=== PATIENT | male | born 1955 | race Caucasian/White ===

== ENCOUNTER → 2017-01-31 | Outpatient (CLI) | payer OTHER ==
[~2017-01-31] MED LIST: ASA CHILDREN'S81 MG PO; ATORVASTATIN CA40 MG PO; BUSPAR DPS10 MG PO; CETIRIZINE HCL5 M1 PO; COZAAR100 MG PO; GLUCOPHAGE DPS850 MG PO; GLUCOTROL DPS10 MG PO; HYDROCHLOROTHIA25 MG PO; NEURONTIN DPS600 MG PO; NITROSTAT0.4 MG SL; PROTONIX40 MG PO; PROVENTIL HFA6.7 GM IH; PROZAC DPS20 MG PO; THERA1 EACH PO; VITAMIN D-32000 UNI1 PO
== END | disposition home or self-care (01) ==
LOC: RAD.S 10:43
DX: R13.12 Dysphagia, oropharyngeal phase (principal)

== ENCOUNTER 2017-02-16 11:04 | Observation (INO) | payer OTHER ==
[~2017-02-16] VITALS: Ht 193 cm; Wt 123.9 kg
--- NOTE | ~2017-02-16 | FD ---
ADMIT: 02/16/2017 RM/LOC: 430 [facility] MR#: [id number] [id number] [facility] [address] EARLENE JUAREZ [address] [place] [address] Final Diagnosis SEX: M AGE: 61 : 1955 ADMISSION DATE: 02/16/2017 DISCHARGE DATE: 02/17/2017 DISCHARGE DIAGNOSES: 1. Chest pain, resolved, suspicious for angina. 2. History of nonobstructive coronary artery disease, status post left heart cath in 2014. 3. Obesity. 4. Hypertension. 5. Hyperlipidemia. 6. Diabetes mellitus type 2. 7. Anxiety/depression. Michele Johnson MD/ vdg JOB #: [id number] CC: Michele Johnson MD, Attending Physician Michele Johnson MD, Family Physician
[2017-02-18] MEDS ORDERED: ATORVASTATIN CA40 MG PO (16:43)
[2017-02-18] MEDS ORDERED: PROVENTIL HFA6.7 GM IH (16:43)
[2017-02-18] MEDS ORDERED: BUSPAR DPS10 MG PO ×2 (16:43)
[2017-02-18] MEDS ORDERED: VITAMIN D-32000 UNI1 PO (16:44)
[2017-02-18] MEDS ORDERED: NEURONTIN DPS600 MG PO (16:44)
[2017-02-18] MEDS ORDERED: CETIRIZINE HCL5 M1 PO (16:44)
[2017-02-18] MEDS ORDERED: PROZAC DPS20 MG PO (16:44)
[2017-02-18] MEDS ORDERED: GLUCOTROL DPS10 MG PO (16:45)
[2017-02-18] MEDS ORDERED: COZAAR100 MG PO (16:46)
[2017-02-18] MEDS ORDERED: HYDROCHLOROTHIA25 MG PO (16:46)
[2017-02-18] MEDS ORDERED: GLUCOPHAGE DPS850 MG PO (16:46)
[2017-02-18] MEDS ORDERED: ASA CHILDREN'S81 MG PO (16:47)
[2017-02-18] MEDS ORDERED: NITROSTAT0.4 MG SL (16:47)
[2017-02-18] MEDS ORDERED: THERA1 EACH PO (16:47)
[2017-02-18] MEDS ORDERED: PROTONIX40 MG PO (16:47)
--- NOTE | 2017-02-21 07:29 | HP ---
ADMIT: 02/16/2017 RM/LOC: 430 [facility] MR#: [id number] [address] [address] EARLENE JUAREZ [address] [place] [address] History and Physical SEX: M AGE: 61 : 1955 DATE OF SERVICE: 02/16/2017 CHIEF COMPLAINT: Chest discomfort. HISTORY OF PRESENT ILLNESS: The patient is a very pleasant 61-year-old gentleman, he has past medical history of obesity, diabetes, hypertension, hyperlipidemia, and nonobstructive coronary disease presents to [facility] emergency room today with complaints of chest discomfort. The patient notes he had been over at the [facility] where he had appointment for acupuncture today and in the screening questionnaires, did complain of some left-sided chest discomfort with radiation down his arm and a little bit of questionable numbness in his hand. Rated this as moderate in severity associated with a little bit of shortness of breath. He was not nauseated or diaphoretic and he was sent to the emergency room for more evaluation there. They placed nitroglycerin paste and the patient notes the pain went away. In discussions with the patient, he has noted episodes intermittently over the last several months of the same left-sided chest discomfort that has been associated with dyspnea on exertion and decreased exercise tolerance. He just feels like certain exercises leave him much more fatigued and short of breath than he used to be. No new edema, no new palpitations have been noted. He is taking all of his medications as directed. No recent medication changes have been noted. No fevers, chills, or cough has been noted. No bowel or bladder complaints have been noted. In the emergency room, his initial cardiac enzymes showed a normal troponin, but a mildly elevated MB fraction. He is admitted for observation/further evaluation. In visiting with the patient, in hospital room he currently denies any chest pain, pressure, or shortness of breath. The patient also has noted some episodes of dizziness with exertion recently. The remaining review of systems are reviewed and are negative. PAST MEDICAL HISTORY: 1. Obesity. 2. Diabetes mellitus type 2. 3. 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 4. Hypertension. 5. Diabetic neuropathy. 6. History of hypogonadism. 7. Tinnitus. 8. Chronic low back pain. 9. Chronic arthritis of the knees and hips. 10.Chronic depression/anxiety. 11.History of kidney stones. 12.History of tobacco abuse. 13.Obesity. 14.Status post appendectomy. 15.Status post hernia repair. 16.Left knee arthroscopy. FAMILY HISTORY: Noncontributory. ADMIT: 02/16/2017 RM/LOC: 430 [facility] MR#: [id number] [address] [address] EARLENE JUAREZ [address] [place] [address] History and Physical SEX: M AGE: 61 : 1955 SOCIAL HISTORY: He is a prior smoker, not a drinker. Currently disabled through the [place]. He is and lives with his . CURRENT HOME MEDICATIONS: Include: 1. Albuterol. 2. BuSpar. 3. Atorvastatin. 4. Zyrtec. 5. Vitamin D. 6. Prozac. 7. Gabapentin. 8. Glipizide. 9. Hydrochlorothiazide. 10.Losartan. 11.Metformin. 12.Naproxen. 13.Pantoprazole. 14.Aspirin. 15.Multivitamin. ALLERGIES: NO KNOWN MEDICAL ALLERGIES. PHYSICAL EXAM: VITAL SIGNS: 96.8, 76, 18, 129/69, 95% on room air. GENERAL: This is a morbidly obese, gentleman, no apparent distress. He is alert and oriented x3, cooperative with examiner. HEENT: Normocephalic and atraumatic. Mucous membranes are moist. NECK: Supple. LUNGS: Clear. No wheezes, rhonchi, or rales. HEART: Regular rate and rhythm. No murmurs, clicks, rubs. ABDOMEN: Obese, soft, nontender, nondistended. Positive bowel sounds throughout. EXTREMITIES: He has no significant edema noted. He has good pulses that are palpable. NEUROLOGIC: Cranial nerves II through XII are intact. No focal deficits are noted. SKIN: Shows no obvious rashes. LABORATORY DATA: Shows hemoglobin 14.7, white count 6.6, and 176,000 platelets. Sodium 140, potassium 3.9, BUN 16, creatinine 0.9, blood sugar was 204, and calcium was 9. CK was 237 with an MB of 4.5, troponin less than 0.05 on 2 separate occasions. His EKG shows normal sinus rhythm. He overall has a normal axis. He has normal intervals. No significant ST or T-wave changes are noted. Chest x-ray, I see no airspace disease. His heart shadow appears normal. Mediastinum looks normal. ASSESSMENT/PLAN: 1. Chest pain/unstable angina. ADMIT: 02/16/2017 RM/LOC: 430 [facility] MR#: [id number] [address] [place] [id number] EARLENE JUAREZ [address] [place] [address] History and Physical SEX: M AGE: 61 : 1955 2. Known coronary disease with his last left heart catheterization [facility] 2014 showing nonobstructive disease. 3. Diabetes mellitus type 2. 4. Hypertension. 5. Hyperlipidemia. 6. Morbid obesity. 7. Anxiety. At this time,the patient is chest pain free. Two sets of cardiac enzymes are fine right now, but I am very suspicious based on his symptomatology. Continue with aspirin, statin, blood pressure control. We got a couple more sets of cardiac enzymes ready to come back. I am going to pull his nitroglycerin patch off and see how he does. Certainly, depending on his cardiac enzymes and symptoms, likely we will need stress testing versus likely just a repeat left heart catheterization to look for any changes. As mentioned continuous risk factor modification, we will hold his metformin now just in case there is a left heart catheterization coming up. Plan on sliding scale insulin. We will follow closely on telemetry. Michele Johnson MD/ trey JOB #: [id number] CC: Michele Johnson, Attending Physician Michele Johnson, Family Physician
--- NOTE | 2017-03-06 15:51 | ER ---
ADMIT: 02/16/2017 RM/LOC: ER [facility] MR#: [id number] [address] [address] EARLENE JUAREZ [address] [place] [address] Emergency Room Report SEX: M AGE: 61 : 1955 DATE: 02/16/2017 This 61-year-old gentleman woke with chest pain today. He has known cardiovascular disease, which was diagnosed by an angio done in 2014. Describes the pain as a pressure, radiating down the left arm. Associated with activity, relieved by rest. PAST MEDICAL HISTORY: Significant for hypertension, anxiety, coronary artery disease, chronic back pain. PHYSICAL EXAMINATION: GENERAL: Reveals a pleasant gentleman in no acute distress. LUNGS: Clear to auscultation. CARDIOVASCULAR: No murmur. Regular rate and rhythm. ABDOMEN: Obese, soft, nontender. LABORATORY DATA: CK-MB was 4.5, magnesium was 1.4, and glucose 204. EKG was within normal parameters. Chest x-ray within normal parameters. The patient is being admitted with unstable angina. Janes Santiago MD/ trey JOB #: [id number] CC: Janes Santiago MD, Attending Physician [facility] Physician, Family Physician
== END 2017-02-17 12:00 | disposition home or self-care (01) ==
LOC: ER 11:04 → 4PCU 12:00
PROVIDERS: ADMIT Internal Medicine
DX: R07.9 Chest pain, unspecified (principal); I10 Essential (primary) hypertension; E11.9 Type 2 diabetes mellitus without complications; I25.10 Atherosclerotic heart disease of native coronary artery without angina pectoris; F32.9 Major depressive disorder, single episode, unspecified; F41.9 Anxiety disorder, unspecified; M54.5 Low back pain; G89.29 Other chronic pain; E29.1 Testicular hypofunction; E66.01 Morbid (severe) obesity due to excess calories; Z68.33 Body mass index [BMI] 33.0-33.9, adult; Z88.5 Allergy status to narcotic agent; Z87.442 Personal history of urinary calculi; Z90.49 Acquired absence of other specified parts of digestive tract; Z98.890 Other specified postprocedural states